=== PATIENT | female | born 1990 | race Caucasian/White ===

== ENCOUNTER 2019-03-04 15:01 | Emergency (ER) | payer MEDICAID, OTHER ==
[~2019-03-04] VITALS: Ht 167.6 cm; Wt 67.0 kg
[2019-03-04 17:28] VITALS: BP 118/62
== END 2019-03-04 17:32 | disposition left against medical advice (07) ==
LOC: ER 15:01
DX: N93.9 Abnormal uterine and vaginal bleeding, unspecified (principal); Z32.02 Encounter for pregnancy test, result negative
CPT/HCPCS: 81025; 99283